=== PATIENT | male | born 1960 | race Caucasian/White ===

== ENCOUNTER 2022-03-12 19:42 | Emergency (ER) | payer OTHER ==
[2022-03-12] MEDS ORDERED: Diphtheria,Pertussis(Acell),Tetanus Vaccine 0.5 ML Syringe IM ONE (20:46)
== END 2022-03-12 20:56 | disposition home or self-care (01) ==
LOC: JP.ED 19:42
DX: S01.81XA Laceration without foreign body of other part of head, initial encounter (principal); Z23 Encounter for immunization; W01.198A Fall on same level from slipping, tripping and stumbling with subsequent striking against other object, initial encounter
CPT/HCPCS: 90471; 90715; 99282

== ENCOUNTER 2024-01-02 06:45 | Day surgery (SDC) | payer OTHER ==
[2024-01-02] MEDS: Lactated Ringers 1,000 ML IV SCH (07:14)
[2024-01-02] MEDS ORDERED: Midazolam 1 MG/ML 2 ML SDV ONE (07:32)
[2024-01-02] MEDS ORDERED: Propofol 200 MG/20 ML SDV ONE (07:32)
[2024-01-02] MEDS ORDERED: fentaNYL 50 MCG/ML SDV ONE (07:33)
== END 2024-01-02 09:44 | disposition home or self-care (01) ==
LOC: JP.SDS 06:45
PROVIDERS: ATTEND Student in an Organized Health Care Education/Training Program
DX: Z12.11 Encounter for screening for malignant neoplasm of colon (principal); D12.4 Benign neoplasm of descending colon; K63.5 Polyp of colon; K57.30 Diverticulosis of large intestine without perforation or abscess without bleeding; I10 Essential (primary) hypertension
CPT/HCPCS: 88305; J2250; J2704; J3010; J7120